=== PATIENT | male | born 1965 | race Caucasian/White ===

== ENCOUNTER 2024-07-18 06:44 | Inpatient (IN) | payer SELFPAY ==
[~2024-07-18] VITALS: Ht 188 cm; Wt 85.5 kg
[2024-07-18] MEDS ORDERED: NS 1,000 ML IV ONE (06:46)
[2024-07-18] MEDS ORDERED: NS 1,000 ML IV SCH (06:55)
[2024-07-18 06:58] LABS: BASOPHILS PERCENT AUTO 1 % (0-2); EOSINOPHILS ABSOLUTE AUTO 0.22 K/mm3 (0.00-0.68); EOSINOPHILS PERCENT AUTO 2 % (0-6); Hematocrit 44.9 % (37.0-53.0); Hemoglobin 14.9 g/dL (13.5-17.5); IMMATURE GRAN ABSOLUTE AUTO 0.06 K/mm3 (0.00-0.10); IMMATURE GRAN PERCENT AUTO 1 % (0-1); LYMPHOCYTES ABSOLUTE AUTO 2.23 K/mm3 (0.84-5.20); LYMPHOCYTES PERCENT AUTO 18 % (21-46); MONOCYTES ABSOLUTE AUTO 0.96 K/mm3 (0.16-1.47); MONOCYTES PERCENT AUTO 8 % (4-13); Mean Corpuscular HGB 29.8 pg (26.0-34.0); Mean Corpuscular HGB Conc 33.2 g/dL (31.5-36.5); Mean Corpuscular Volume 90 fL (80-100); Mean Platelet Volume 10.2 fL (9.1-12.4); NEUTROPHILS ABSOLUTE AUTO 9.16 K/mm3 (1.96-9.15); NEUTROPHILS PERCENT AUTO 72 % (41-73); Platelet Count 188 K/mm3 (150-400); RDW Coefficient Variation 13.2 % (11.7-14.2); RDW Standard Deviation 43.6 fL (35.1-46.3); White Blood Cell Count 12.73 K/mm3 (4.00-11.30)
[2024-07-18 07:06] LABS: Base Excess Venous 1.3 mmol/L; Bicarbonate Venous 24.6 mmol/L (24.0-30.0); PCO2 Venous 52.6 mmHg (38-42); pH Blood Venous 7.32 (7.34-7.37)
[2024-07-18 07:30] LABS: Alanine Aminotransfer (ALT/SGP 18 U/L (12-78); Albumin, Blood 3.9 g/dL (3.4-5.0); Albumin/Globulin Ratio 1.1 (0.8-1.8); Alk Phos 88 U/L (50-136); Anion Gap 11 mmol/L (3-11); Aspartate Aminotrans (AST/SGOT 12 U/L (12-37); Beta-hydroxybutyrate 16.9 mg/dL (0.2-2.8); Bilirubin, Total 0.5 mg/dL (0.1-1.0); Blood Urea Nitrogen 16 mg/dL (8-24); Bun/Creatinine Ratio 20.2 (12.0-20.0); CO2, Blood 26 mmol/L (21-32); Calcium, Blood 9.2 mg/dL (8.5-10.1); Chloride, Blood 106 mmol/L (98-108); Creatinine, Blood 0.79 mg/dL (0.60-1.20); Ethanol (Alcohol), Blood, Med <3 mg/dL; Globulin, Blood 3.4 g/dL (2.2-4.0); Glomerular Filtration Rate 102 (60-); Glucose, Blood 496 mg/dL (70-99); Potassium, Blood 4.3 mmol/L (3.5-5.5); Sodium, Blood 139 mmol/L (136-145); Total Protein, Blood 7.3 g/dL (6.4-8.2)
[2024-07-18] MEDS ORDERED: Insulin Regular 100 Unit/ML 1ML Dose IV ONE (09:35)
[2024-07-18] MEDS ORDERED: LORazepam 2 MG/ML 1ML Injection IV ONE ×2 (10:15→15:20)
[2024-07-18 10:33] LABS: Source, Urine Voided
[2024-07-18 10:38] LABS: Appearance, Urine Clear (Clear); Bilirubin, Urine Neg (Neg); Blood, Urine 2+ (Neg); Glucose Qualitative, Urine 4+ (Neg); Ketones, Urine 3+ (Neg); Leukocyte Esterase, Urine Neg (Neg); Nitrite, Urine Neg (Neg); Protein, Urine 2+ (Neg); Specific Gravity, Urine 1.015 (1.003-1.022); Urobilinogen, Urine NORM (Normal)
[2024-07-18 10:53] LABS: U Amphetamine Screen Not Detected; U Barbituate Screen Not Detected; U Benzodiazapine Screen Not Detected; U Buprenorphine Screen Not Detected; U Cannabinoids Screen Not Detected; U Cocaine Screen Not Detected; U Methadone Screen Not Detected; U Methamphetamine Screen Not Detected; U Opiates Screen Not Detected; U Oxycodone Screen Not Detected; U Phencyclidine Screen Not Detected
[2024-07-18 10:55] LABS: Color, Urine Pale Yellow (P-Yellow)
[2024-07-18 10:56] LABS: White Blood Cells, Urine 0-2 /hpf (0-5)
[2024-07-18 10:57] LABS: Squamous Epithelial Cells Not Seen /hpf (Few)
[2024-07-18 10:58] LABS: Bacteria Rare /hpf; Renal Epithelial Many /hpf (0-Rare)
[2024-07-18] MEDS ORDERED: Ketamine HCl 100 MG / ML 5ML Vial IV ONE (13:10)
[2024-07-18] MEDS ORDERED: Lactated Ringer's 1,000 ML IV SCH (14:14)
[2024-07-18 14:19] LABS: Automated CSF RBC Count 0.018 M/mm3 (0-0)
[2024-07-18 14:23] LABS: RBC Count, CSF 18000 /mm3 (0-0); WBC Count, CSF 610 /mm3 (0-5)
[2024-07-18 14:27] LABS: Automated CSF RBC Count 0.002 M/mm3 (0-0)
[2024-07-18 14:28] LABS: RBC Count, CSF 2000 /mm3 (0-0); WBC Count, CSF 650 /mm3 (0-5)
[2024-07-18] MEDS ORDERED: Insulin Human Regular 100 UNIT/ML 10ML Vial SC ONE (14:30)
[2024-07-18 14:32] LABS: Appearance, CSF Clear (Clear); Color, CSF No Color (No Color)
[2024-07-18 14:33] LABS: Appearance, CSF Hazy (Clear); Color, CSF Pink (No Color)
[2024-07-18 15:39] VITALS: BP 164/93
[2024-07-18 15:51] LABS: Lymphocytes, CSF 71 % (40-80); Monocytes, CSF 13 % (15-45); Neutrophils, CSF 16 % (0-6)
[2024-07-18] MEDS ORDERED: OLANZapine 10 MG Vial IM PRN (15:55)
[2024-07-18] MEDS ORDERED: FLU VACC TS2024-25(6MOS UP)/PF 45 MCG/0.5 ML SYRINGE IM ONE (16:00)
[2024-07-18] MEDS ORDERED: Insulin Human Lispro 100 Units/ML 3ML Syringe SC SCH ×2 (16:00→16:40)
[2024-07-18 16:03] LABS: Cryptococcus Neoformans/Gattii Not Detected (NOT DETECT); Enterovirus Not Detected (NOT DETECT); Escherichia Coli K1 Not Detected (NOT DETECT); Haemophilus Influenza Not Detected (NOT DETECT); Herpes Simplex Virus 1 Not Detected (NOT DETECT); Herpes Simplex Virus 2 Not Detected (NOT DETECT); Human Herpesvirus 6 Not Detected (NOT DETECT); Human Parechovirus Not Detected (NOT DETECT); Listeria Monocytogenes Not Detected (NOT DETECT); Neisseria Meningitidis Not Detected (NOT DETECT); Streptococcus Agalactiae Not Detected (NOT DETECT); Streptococcus Pneumoniae Not Detected (NOT DETECT); Varicella Zoster Virus Not Detected (NOT DETECT)
[2024-07-18 17:08] LABS: Bun/Creatinine Ratio 18.3 (12.0-20.0); Calcium, Blood 9.2 mg/dL (8.5-10.1); Creatinine, Blood 0.66 mg/dL (0.60-1.20); Potassium, Blood 4.8 mmol/L (3.5-5.5)
--- NOTE | 2024-07-18 17:42 | NUR ---
TELEPHONE CALL PLACED TO [employer] ASID CARD FOR THIS COMPANY FOUND IN PATIENTS WALLET. SPOKE WITH DISPATCH WHO WILL CONTACT THEIR TECHNICAL SPEC REGARDING EMERGENCY CONTACT INFO FOR THIS PATIENT PT IS OBTUNDED AND UNABLE TO ANSWER QUESTIONS AT THIS TIME. [employer] DOES CONFIRM THAT THIS PATIENT IS EMPLOYED BY THEM. [employer] GIVEN THIRD FLOOR ACC CONTACT NUMBER AND WILL CALL WITH FURTHER INFORMATION
--- NOTE | 2024-07-18 19:40 | NUR ---
SHIFT SUMMARY PATIENT ARRIVED TO FLOOR FROM ED THIS SHIFT. UNRESPONSIVE TO ALL STIMULI. PUPILS SLUGGISH, GAZE FIXED WHEN EYES ASSISTED OPEN. ONE EPISODE OF MOVEMENT WHERE PATIENT STOOD AT BEDSIDE, WAS GRABBING AT HIS GENITALS IN A MOTION LIKE HE NEEDED TO URINATE. AT THIS TIME PATIENT HAD EYES OPEN BUT WAS NOT RESPONDING TO ANYONE IN ROOM, WAS ABSENTLY GRABBING AND SWINGING ARMS, HAD A FIXED GAZE FORWARD. THEN STOPPED AND URINATED ON FLOOR. WHEN FINISHED HE WAS ASSISTED BACK TO BED AND BECAME UNRESPONSIVE AGAIN. SECURITY WAS CALLED DURING THIS TIME TO ASSIST BUT PATIENT WAS ABLE TO BE MANAGED WITH FLOOR STAFF. THIS RN ASSISTED WITH CALL TO [employer], WHO SUBSEQUENTLY CONTACTED BRODY WHO WAS MADE AWARE AND WAS ABLE TO COME TO HOSPITAL. DR CANELA WAS ABLE TO ROUND IN ROOM WHEN WAS PRESENT. CALL LIGHT IN REACH, BED ALARMED, NOT ABLE TO MAKE NEEDS KNOWN. CARES ONGOING. WALLET LOCKED IN NURSE DRAWER.
[2024-07-18] MEDS ORDERED: Thiamine HCl 100 MG in NS 50 ML IV SCH (20:00)
[2024-07-18 20:25] VITALS: BP 128/84
--- NOTE | 2024-07-19 03:56 | NUR ---
MIXING OPERATOR SUMMARY HR OVER 100 INTERMITTENTLY VERY RAPID DUE TO EPISODES OF AGITATION AND ATTEMPTS TO GET OOB UNSAFELY. EXTREMELY AGITATED, NEEDED SECURITY TO ASSIST PLACEMENT OF TOUGH CUFFS X 4 EXT AROUND 2200 HE IS VERY STRONG AND REFUSING TO COMPLY WITH SAFETY ISSUES. VERY HIGH FALL RISK AND JUMPING OOB "TO PEE". ORDERED SCHMID CATH PLACED, PT VERY DEFIANT AND AGITATED AT INTERVALS AND THEN QUICK TO APPEAR TO FALL ASLEEP WITHOUT RESPONDING TO VERBAL COMMANDS. SCHMID PLACED AND OVER 1000 CCS OUT. MED TELE - INTERMITTENT SINUS TACH. ACCUCHECKS Q 4 HRS WITH COVERAGE - SEE MAR FOR DETAILS. WILL CONTINUE TO MONITOR. RESTRAINTS AND CIRCULATION CHECKED PER PROTOCOL. RESPS EVEN. SATS IN THE 90'S. BED IN LOW POSITION, RAILS UP X 3 AND CALL LIGHT IN REACH FOR SAFETY. WILL CONTINUE TO ENCOURAGE PT TO BE SAFE.
[2024-07-19 05:38] LABS: BASOPHILS ABSOLUTE AUTO 0.13 K/mm3 (0.00-0.23); BASOPHILS PERCENT AUTO 1 % (0-2); EOSINOPHILS ABSOLUTE AUTO 0.28 K/mm3 (0.00-0.68); EOSINOPHILS PERCENT AUTO 1 % (0-6); Hematocrit 44.9 % (37.0-53.0); Hemoglobin 14.9 g/dL (13.5-17.5); IMMATURE GRAN ABSOLUTE AUTO 0.11 K/mm3 (0.00-0.10); IMMATURE GRAN PERCENT AUTO 1 % (0-1); LYMPHOCYTES ABSOLUTE AUTO 3.65 K/mm3 (0.84-5.20); LYMPHOCYTES PERCENT AUTO 17 % (21-46); MONOCYTES ABSOLUTE AUTO 1.88 K/mm3 (0.16-1.47); MONOCYTES PERCENT AUTO 9 % (4-13); Mean Corpuscular HGB 29.9 pg (26.0-34.0); Mean Corpuscular HGB Conc 33.2 g/dL (31.5-36.5); Mean Corpuscular Volume 90 fL (80-100); Mean Platelet Volume 10.8 fL (9.1-12.4); NEUTROPHILS ABSOLUTE AUTO 14.93 K/mm3 (1.96-9.15); NEUTROPHILS PERCENT AUTO 71 % (41-73); Platelet Count 206 K/mm3 (150-400); RDW Coefficient Variation 13.5 % (11.7-14.2); RDW Standard Deviation 44.3 fL (35.1-46.3); Red Blood Cell Count 4.98 M/mm3 (4.30-5.90); White Blood Cell Count 20.98 K/mm3 (4.00-11.30)
[2024-07-19 06:34] LABS: Bun/Creatinine Ratio 22.7 (12.0-20.0); Calcium, Blood 8.9 mg/dL (8.5-10.1); Creatinine, Blood 0.71 mg/dL (0.60-1.20); Potassium, Blood 4.1 mmol/L (3.5-5.5)
[2024-07-19 06:41] VITALS: BP 107/78
[2024-07-19] MEDS ORDERED: Vancomycin HCL 2,000 MG in NS 500 ML IV ONE ×2 (07:30→17:20)
[2024-07-19] MEDS ORDERED: Piperacillin/Tazobactam Sod 3.375 GM in NS 100 ML IV SCH ×2 (07:30→16:30)
[2024-07-19 07:31] VITALS: BP 119/72
[2024-07-19] MEDS ORDERED: Enoxaparin 40 MG/0.4 ML SYR SC SCH (09:00)
[2024-07-19] MEDS ORDERED: HyDROXyzine HCl 25 MG Tab PO PRN (09:10)
[2024-07-19] MEDS ORDERED: LORazepam 1 MG Tab PO PRN (11:20)
[2024-07-19] MEDS ORDERED: Lactated Ringer's 1,000 ML IV SCH (11:25)
[2024-07-19] MEDS ORDERED: Insulin Human Lispro 100 Units/ML 3ML Syringe SC SCH ×2 (11:30→21:00)
[2024-07-19 13:09] LABS: BASOPHILS ABSOLUTE AUTO 0.11 K/mm3 (0.00-0.23); BASOPHILS PERCENT AUTO 1 % (0-2); EOSINOPHILS PERCENT AUTO 0 % (0-6); Hematocrit 42.7 % (37.0-53.0); Hemoglobin 14.3 g/dL (13.5-17.5); IMMATURE GRAN ABSOLUTE AUTO 0.12 K/mm3 (0.00-0.10); IMMATURE GRAN PERCENT AUTO 1 % (0-1); LYMPHOCYTES ABSOLUTE AUTO 2.31 K/mm3 (0.84-5.20); LYMPHOCYTES PERCENT AUTO 10 % (21-46); MONOCYTES ABSOLUTE AUTO 1.85 K/mm3 (0.16-1.47); MONOCYTES PERCENT AUTO 8 % (4-13); Mean Corpuscular HGB 30.4 pg (26.0-34.0); Mean Corpuscular HGB Conc 33.5 g/dL (31.5-36.5); Mean Corpuscular Volume 91 fL (80-100); Mean Platelet Volume 10.9 fL (9.1-12.4); NEUTROPHILS ABSOLUTE AUTO 18.14 K/mm3 (1.96-9.15); NEUTROPHILS PERCENT AUTO 80 % (41-73); Platelet Count 190 K/mm3 (150-400); RDW Coefficient Variation 13.5 % (11.7-14.2); RDW Standard Deviation 45.3 fL (35.1-46.3); Red Blood Cell Count 4.71 M/mm3 (4.30-5.90); White Blood Cell Count 22.63 K/mm3 (4.00-11.30)
--- NOTE | 2024-07-19 14:51 | NUR ---
THIS RN INTO PATIENTS ROOM TO EVALUATE NUREJI-PATIENT REPORTS HE IS CONFUSED TO WHY HE IS IN THE HOSPITAL-THIS RN DISCUSSED THE CONCERN WITH HIS MENTATION WHEN HE CAME INTO THE HOSPITAL AND TALKED WITH THE PATIENTS IN REGARDS TO WHAT THE DOCTORS AND PATIENT HAD DISCUSSED THIS MORNING. PATIENT IS ORDERED TO HAVE MORE IMAGING AND LABS DRAWN. PATIENT IS ANXIOUS AND IS TRYING TO UNDERSTAND THE SITUATION-REORIENTATION APPEARED TO HELP PATIENT.
--- NOTE | 2024-07-19 15:10 | NUR ---
DENTAL HYGEINIST IN TO SEE PATIENT-SHE REPORTS THAT PATIENT HAS A LOT OF BACTERIA IN HIS MOUTH ALONG WITH MULTIPLE DENTAL ISSUES THAT PLACES THAT PATIENT AT A HIGH RISK FOR ABCESS IN THE MOUTH. DENTAL HYGEINIST EDUCATED PATIENT AND SUPPLIED PATIENT WITH DENTAL CARE ITEMS.
[2024-07-19 15:34] VITALS: BP 105/61
--- NOTE | 2024-07-19 15:54 | NUR ---
DR. JENNINGS CONTACTED. PATIENTS ORAL TEMPERATURE IS 101.[address] JENNINGS NOTIFIED OF TEMPERATURE-DR. JENNINGS STATES HE WILL PUT IN ORDERS FOR TYLENOL FOR FEVER AND ABX.
[2024-07-19] MEDS ORDERED: Acetaminophen 325 MG TABLET PO PRN (16:00)
[2024-07-19] MEDS ORDERED: NS 250 ML IV PRN (16:40)
[2024-07-19] MEDS ORDERED: Azithromycin 500 MG in NS 250 ML IV SCH (17:00)
--- NOTE | 2024-07-19 18:28 | NUR ---
SHIFT SUMMARY. PATIENT IS A&O3-4 WITH SOME CONFUSION. PATIENT IS A 1P ASSIST TO THE BATHROOM. TUFF CUFFS c NO BEHAVIORAL DISTURBANCES. SCHMID REMOVED 07/19/24 PATIENT IS ABLE TO USE THE URINAL AND RESTROOM W/O ISSUES-NO COMPLAINTS c URINATION. PATIENT HAD TEMPERATURE OF 101.8 DEGREES F-BLANKET REMOVED AND SHEET PROVIDED, FAN AND COOL WASH CLOTH- ORDERED TYLENO-PATIENTS TEMPERATURE RECHEKED PRIOR TO TYLENOL GIVEN AND TEMPERATURE WAS AT 99.8-TYLENOL GIVEN. PATIENT IS PLEASANT AND COOPERATIVE WITH CARE. PATIENT HAS BEEN SOMULENT SINCE MID MORNING OFF AND ON T/O SHIFT. PATIENT HAS RECEIVED ABX. PATIENT TO RECEIVE MRI TOMORROW AT 1200 PER RADIOLOGY D/T MRI MACHINE BEING DOWN. PATIENTS TO COME IN TONIGHT AROUND 0000 D/T WORK SCHEDULE. BED IS LOCKED IN THE LOWEST POSITION WITH CALL LIGHT IN REACH. CARE IS ONGOING.
[2024-07-19 19:21] VITALS: BP 123/68
[2024-07-20 02:47] VITALS: BP 126/83
--- NOTE | 2024-07-20 03:40 | NUR ---
SPEECH AND LANGUAGE CLINICIAN SUMMARY VSS. AFEBRILE. ALERT AND ORIENTED X 4. VOICED APPOLOGIES FOR BEHAVIOR OF PREVIOUS DAY/NIGHT WHEN HE WAS IN RESTRAINTS, VOICED HE DIDNT KNOW HE WAS DOING WHAT HE DID. RESPS EVEN AND CLEAR TO AUSCULTATION. IV ANTIBIOTICS INFUSING - SEE MAR FOR DETAILS. MED TELE SINUS IN THE 90'S. PLAN FOR MRI IN THE AM. FORM FILLED OUT AND FAX'D TO IMAGING. ACCUCHECKS IN THE 300'S. COVERAGE INSULIN ADMIN - SEE MAR FOR DETAILS. PLACED ON DROPLET PRECAUTIONS UNTIL RESP PANEL IS OBTAINED AND RESP ISSUES RULED OUT. HAS BEEN RESTING QUIETLY WITH FEW INTERRUPTIONS. ABLE TO REPOSITION SELF IN BED WITHOUT ASSIST FOR COMFORT AND SKIN MAINTENANCE. CALL LIGHT IN REACH, RAILS UP X 2 AND BED IN LOW POSITION FOR SAFETY. WILL CONT TO MONITOR.
[2024-07-20 05:34] LABS: BASOPHILS ABSOLUTE AUTO 0.13 K/mm3 (0.00-0.23); BASOPHILS PERCENT AUTO 1 % (0-2); EOSINOPHILS ABSOLUTE AUTO 0.41 K/mm3 (0.00-0.68); EOSINOPHILS PERCENT AUTO 2 % (0-6); Hematocrit 40.8 % (37.0-53.0); Hemoglobin 13.5 g/dL (13.5-17.5); IMMATURE GRAN ABSOLUTE AUTO 0.09 K/mm3 (0.00-0.10); IMMATURE GRAN PERCENT AUTO 1 % (0-1); LYMPHOCYTES ABSOLUTE AUTO 3.32 K/mm3 (0.84-5.20); LYMPHOCYTES PERCENT AUTO 17 % (21-46); MONOCYTES ABSOLUTE AUTO 1.91 K/mm3 (0.16-1.47); MONOCYTES PERCENT AUTO 10 % (4-13); Mean Corpuscular HGB 29.8 pg (26.0-34.0); Mean Corpuscular HGB Conc 33.1 g/dL (31.5-36.5); Mean Corpuscular Volume 90 fL (80-100); Mean Platelet Volume 10.6 fL (9.1-12.4); NEUTROPHILS ABSOLUTE AUTO 13.85 K/mm3 (1.96-9.15); NEUTROPHILS PERCENT AUTO 70 % (41-73); Platelet Count 164 K/mm3 (150-400); RDW Coefficient Variation 13.2 % (11.7-14.2); RDW Standard Deviation 43.7 fL (35.1-46.3); Red Blood Cell Count 4.53 M/mm3 (4.30-5.90); White Blood Cell Count 19.71 K/mm3 (4.00-11.30)
[2024-07-20 05:58] LABS: Albumin/Globulin Ratio 0.9 (0.8-1.8); Bilirubin, Total 0.7 mg/dL (0.1-1.0); Bun/Creatinine Ratio 21.8 (12.0-20.0); Calcium, Blood 8.8 mg/dL (8.5-10.1); Creatinine, Blood 0.78 mg/dL (0.60-1.20); Globulin, Blood 3.4 g/dL (2.2-4.0); Total Protein, Blood 6.4 g/dL (6.4-8.2)
[2024-07-20] MEDS ORDERED: Insulin Glargine-Yfgn 100 Unit/mL 3 ML SYR SC SCH (07:00)
[2024-07-20 07:42] VITALS: BP 108/73
[2024-07-20] MEDS ORDERED: Vancomycin HCL 1,750 MG in NS 500 ML IV SCH (08:00)
[2024-07-20 11:45] LABS: Adenovirus Not Detected (NOT DETECT); Bordetella pertussis Not Detected (NOT DETECT); Chlamydophila pneumoniae Not Detected (NOT DETECT); Coronavirus 229E Not Detected (NOT DETECT); Coronavirus HKU1 Not Detected (NOT DETECT); Coronavirus NL63 Not Detected (NOT DETECT); Coronavirus OC43 Not Detected (NOT DETECT); Human Metapneumovirus Not Detected (NOT DETECT); Human Rhinovirus/Enterovirus Not Detected (NOT DETECT); Influenza A/2009-H1 Not Detected (NOT DETECT); Influenza A/H1 Not Detected (NOT DETECT); Influenza A/H3 Not Detected (NOT DETECT); Influenza B Not Detected (NOT DETECT); Mycoplasma pneumoniae Not Detected (NOT DETECT); Parainfluenza Virus 1 Not Detected (NOT DETECT); Parainfluenza Virus 2 Not Detected (NOT DETECT); Parainfluenza Virus 3 Not Detected (NOT DETECT); Parainfluenza Virus 4 Not Detected (NOT DETECT); Respiratory Syncytial Virus Not Detected (NOT DETECT); SARS-Cov-2 (COVID-19), BioFire Detected (NOT DETECT)
[2024-07-20 15:16] VITALS: BP 107/67
[2024-07-20 16:42] LABS: CORONAVIRUS COVID-19 AG Negative (NEGATIVE)
--- NOTE | 2024-07-20 18:13 | NUR ---
SHIFT SUMMARY PATIENT A/OX4, ABLE TO MAKE NEEDS KNOWN. PLEASANT AND COOPERATIVE WITH STAFF. INDEPENDENT IN ROOM. BLOOD SUGARS REMAIN ELEVATED TODAY, HIGHEST CBG DURING LUNCH AT 368. SPOUSE AT BEDSIDE THIS AFTERNOON AND UPDATED ON PATIENT STATUS. MRI OBTAINED THIS MORNING. RESPIRATORY PANEL OBTAINED AND PATIENT COVID POSITIVE PCR. MD NOTIFIED AND COVID ANTIGEN TEST ORDERED OBTAINED AND RESULTED NEGATIVE. REMAINS ON SPECIAL DROPLET PRECAUTIONS. IV FLUIDS AND ABX DISCONTINUED. PATIENT WITH ELEVATED ORAL TEMP OF 99.5 THIS EVENING, PRN TYLENOL ADMINISTERED. TELEMETRY IN PLACE, NO EVENTS NOTED. NO OTHER CONCERNS AT THIS TIME.
[2024-07-20 20:00] VITALS: BP 114/70
[2024-07-21 01:43] VITALS: BP 113/62
--- NOTE | 2024-07-21 03:43 | NUR ---
REMARKETING REP SUMMARY VSS. REMAINS IN ISOLATION FOR COVID +, ALERT AND OREINTED. HAS BEEN RESTING QUIETLY WITH FEW INTERRUPTIONS. UP AD ALE, ABLE TO REPOSITION SELF IN BED WITHOUT ASSIST FOR COMFORT. RAILS UP X 2, CALL LIGHT IN REACH AND BED IN LOW POSITION FOR SAFETY. NO NOTED ACUTE DISTRESS. WILL CONTINUE TO MONITOR.
[2024-07-21 05:40] LABS: BASOPHILS ABSOLUTE AUTO 0.12 K/mm3 (0.00-0.23); BASOPHILS PERCENT AUTO 1 % (0-2); EOSINOPHILS PERCENT AUTO 3 % (0-6); Hematocrit 38.3 % (37.0-53.0); Hemoglobin 12.9 g/dL (13.5-17.5); IMMATURE GRAN ABSOLUTE AUTO 0.07 K/mm3 (0.00-0.10); IMMATURE GRAN PERCENT AUTO 1 % (0-1); LYMPHOCYTES ABSOLUTE AUTO 3.54 K/mm3 (0.84-5.20); LYMPHOCYTES PERCENT AUTO 28 % (21-46); MONOCYTES ABSOLUTE AUTO 1.23 K/mm3 (0.16-1.47); MONOCYTES PERCENT AUTO 10 % (4-13); Mean Corpuscular HGB 30.1 pg (26.0-34.0); Mean Corpuscular HGB Conc 33.7 g/dL (31.5-36.5); Mean Corpuscular Volume 90 fL (80-100); Mean Platelet Volume 10.8 fL (9.1-12.4); NEUTROPHILS PERCENT AUTO 58 % (41-73); Platelet Count 157 K/mm3 (150-400); RDW Coefficient Variation 13.2 % (11.7-14.2); RDW Standard Deviation 43.4 fL (35.1-46.3); Red Blood Cell Count 4.28 M/mm3 (4.30-5.90); White Blood Cell Count 12.86 K/mm3 (4.00-11.30)
[2024-07-21 06:10] LABS: Albumin, Blood 2.7 g/dL (3.4-5.0); Albumin/Globulin Ratio 0.8 (0.8-1.8); Bilirubin, Total 0.4 mg/dL (0.1-1.0); Bun/Creatinine Ratio 22.4 (12.0-20.0); Calcium, Blood 8.9 mg/dL (8.5-10.1); Creatinine, Blood 0.67 mg/dL (0.60-1.20); Globulin, Blood 3.3 g/dL (2.2-4.0)
[2024-07-21 07:48] VITALS: BP 101/81
[2024-07-21] MEDS ORDERED: Insulin Glargine-Yfgn 100 Unit/mL 3 ML SYR SC SCH (09:00)
[2024-07-21] MEDS ORDERED: Insulin Human Lispro 100 Units/ML 3ML Syringe SC SCH (11:30)
[2024-07-21] MEDS ORDERED: ATOR40TA PO (11:34)
[2024-07-21] MEDS ORDERED: AMOCLA875 PO (11:34)
[2024-07-21] MEDS ORDERED: Prinivil10 MG PO (11:35)
[2024-07-21] MEDS ORDERED: GLYBURIDE-METF1 EAC1 PO (11:35)
[2024-07-21 12:31] LABS: HIV 1,2 COMBO ANTIGEN/ANTIBODY Negative (Negative)
--- NOTE | 2024-07-21 14:35 | NUR ---
PT DC'S WITH INSTRUCTIONS. RX FAXED TO [facility]. PT DECLINED WHEELCHAIR BUT AMBULATED WITH STAFF ESCORT TO ADMISSIONS. STEADY ON FEET, A/O X4. IS GOING TO SEAT [employer] TRIMMER PT. SENT HOME WITH BELONGNINS INCLUDING WALLET THAT WAS LOCKED IN THE RN DRAWER.
[2024-07-21 17:09] LABS: HEPATITIS B SURFACE ANTIBODY 4.92 IU/L; HEPATITIS B SURFACE ANTIGEN Negative (Negative); HEPATITIS BE ANTIBODY Negative (Negative); HEPATITIS BE ANTIGEN Negative (Negative)
[2024-07-22 06:46] LABS: VITAMIN B1,WHOLE BLOOD 142 nmol/L (70-180)
== END 2024-07-21 14:08 | disposition home or self-care (01) | DRG 637 ==
LOC: ER 06:44 → MEDS 16:32 → ENPENDDIS 07-21 11:14 → MEDS 07-21 14:08
PROVIDERS: Emergency Medicine; ADMIT Family Medicine
PROC: 0T9B70Z Drainage of Bladder with Drainage Device, Via Natural or Artificial Opening (ICD-10-PCS; principal; 2024-07-18)
PROC: 009U3ZX Drainage of Spinal Canal, Percutaneous Approach, Diagnostic (ICD-10-PCS; 2024-07-18)
DX: E11.10 Type 2 diabetes mellitus with ketoacidosis without coma (principal); J12.82 Pneumonia due to coronavirus disease 2019; U07.1 COVID-19; I24.89 Other forms of acute ischemic heart disease; G93.49 Other encephalopathy; R65.10 Systemic inflammatory response syndrome (SIRS) of non-infectious origin without acute organ dysfunction; Z66 Do not resuscitate; F17.210 Nicotine dependence, cigarettes, uncomplicated; I10 Essential (primary) hypertension; R45.1 Restlessness and agitation; E86.0 Dehydration; R33.9 Retention of urine, unspecified; Z79.84 Long term (current) use of oral hypoglycemic drugs; Z79.4 Long term (current) use of insulin; Z82.49 Family history of ischemic heart disease and other diseases of the circulatory system; Z28.21 Immunization not carried out because of patient refusal
CPT/HCPCS: 0202U; 36415; 62270; 70450; 70553; 71045; 71260; 74177; 80048; 80053; 80320; 81001; 82010; 82140; 82550; 82607; 82803; 82945; 82947; 83605; 84145; 84157; 84425; 84443; 84484; 85025; 85651; 86140; 86592; 87040; 87070; 87389; 87426-QW; 87483; 89051; 93005; 93010; 96361-59; 96374-59; 99285-25; A9270; A9579; J0456; J1650; J1815; J2060; J2543; J3370; J3411; J7030; J7040; J7050; J7120; Q9967